=== PATIENT | male | born 1975 | race American Indian/Alaskan Native ===

== ENCOUNTER 2017-03-31 22:00 | Emergency (ER) | payer SELFPAY ==
[2017-03-31 23:52] VITALS: BP 117/77
[2017-04-01 00:47] LABS: Basophils # (Auto) 0.1 K/mm3 (0.0-0.1); Basophils % (Auto) 0.5 % (0.0-1.8); Eosinophils # (Auto) 0.1 K/mm3 (0.0-0.4); Eosinophils % (Auto) 0.8 % (0.0-4.3); Hematocrit 42.2 % (35.5-45.6); Hemoglobin 13.6 gm/dl (11.8-15.2); Lymphocytes # (Auto) 2.9 K/mm3 (1.2-5.4); Lymphocytes % (Auto) 30.2 % (13.4-35.0); Mean Corpuscular HGB Conc 32 % (32-34); Mean Corpuscular Volume 75 fl (84-94); Monocytes # (Auto) 0.8 K/mm3 (0.0-0.8); Monocytes % (Auto) 8.5 % (0.0-7.3); Platelet Count 259 K/mm3 (140-440); Red Blood Count 5.65 M/mm3 (3.65-5.03)
[2017-04-01 00:58] LABS: Mean Corpuscular Hemoglobin 24 pg (28-32)
[2017-04-01 01:06] LABS: Creatine Kinase MB 2.9 ng/mL (0.0-4.0)
[2017-04-01 01:07] LABS: Alanine Aminotransferase 207 units/L (7-56); Albumin 4.2 g/dL (3.9-5); BUN/Creatinine Ratio 13; Blood Urea Nitrogen 10 mg/dL (9-20); Calcium 9.1 mg/dL (8.4-10.2); Hemolysis Index 8
== END 2017-04-01 01:00 | disposition left against medical advice (07) ==
LOC: ED 22:00
DX: R50.9 Fever, unspecified (principal); R42 Dizziness and giddiness; Z53.21 Procedure and treatment not carried out due to patient leaving prior to being seen by health care provider
CPT/HCPCS: 36415; 80048; 80053; 82550; 82553; 84484; 85025; 93005; 93010

== ENCOUNTER 2017-07-23 06:52 | Emergency (ER) | payer SELFPAY | END 2017-07-23 06:53 | disposition left against medical advice (07) | LOC: ED 06:52 | DX: M79.605 Pain in left leg (principal); M79.602 Pain in left arm; Z53.21 Procedure and treatment not carried out due to patient leaving prior to being seen by health care provider ==

== ENCOUNTER 2018-06-03 02:04 | Emergency (ER) | payer BC, OTHER ==
[2018-06-03] MEDS ORDERED: IBUPROFEN PO STA (04:13)
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
[2018-06-03 20:06] VITALS: BP 147/106
== END 2018-06-03 05:05 | disposition home or self-care (01) ==
LOC: ED 02:04
DX: S46.912A Strain of unspecified muscle, fascia and tendon at shoulder and upper arm level, left arm, initial encounter (principal); I10 Essential (primary) hypertension; F17.200 Nicotine dependence, unspecified, uncomplicated; Z79.899 Other long term (current) drug therapy; V49.9XXA Car occupant (driver) (passenger) injured in unspecified traffic accident, initial encounter; Y93.89 Activity, other specified; Y99.8 Other external cause status; Y92.89 Other specified places as the place of occurrence of the external cause
CPT/HCPCS: 99283

== ENCOUNTER 2018-06-23 00:16 | Emergency (ER) | payer BC, OTHER ==
[2018-06-23 00:28] VITALS: BP 186/111
== END 2018-06-23 02:55 | disposition left against medical advice (07) ==
LOC: ED 00:16
DX: R51 Headache (principal); Z53.21 Procedure and treatment not carried out due to patient leaving prior to being seen by health care provider